=== PATIENT | female | born 1935 | race Caucasian/White ===

== ENCOUNTER 2021-12-17 17:47 | Emergency (ER) | payer OTHER, MEDICARE ==
[~2021-12-17] VITALS: Ht 170.2 cm; Wt 63.0 kg
[~2021-12-17 17:47] MED LIST: ASPIRIN325 MG PO; CINNAMON500 MG PO; CITALOPRAM HBR10 MG PO; CRANBERRY500 M3 PO; LEVOTHYROXINE150 MCG PO; MAGNESIUM500 MG PO; METOPROLOL SUCC50 MG PO; NASACORT10.8 ML NAS; OMEPRAZOLE20 MG PO; SUDOGEST60 MG PO; VITAMIN D2000 UNIT PO
== END 2021-12-17 19:58 | disposition home or self-care (01) ==
LOC: ED 17:47
DX: S61.012A Laceration without foreign body of left thumb without damage to nail, initial encounter (principal); Z23 Encounter for immunization; I10 Essential (primary) hypertension; E78.5 Hyperlipidemia, unspecified; Z87.891 Personal history of nicotine dependence; Z88.8 Allergy status to other drugs, medicaments and biological substances; Z91.048 Other nonmedicinal substance allergy status; Z88.7 Allergy status to serum and vaccine; Z79.899 Other long term (current) drug therapy; Z79.82 Long term (current) use of aspirin
CPT/HCPCS: 12001; 90471; 90715; 99282-25

== ENCOUNTER 2025-04-08 18:44 | Emergency (ER) | payer MEDICARE, OTHER ==
[~2025-04-08] VITALS: Ht 170.2 cm; Wt 66.1 kg
[2025-04-08 19:37] LABS: BASOPHILS 0.5 % (0.1-1.2); EOSINOPHILS 1.0 % (0.7-5.8); LYMPHOCYTES 33.3 % (19.3-51.7); MCH 29.3 PG (25.6-32.2); MCHC 35.4 g/dL (32.2-35.5); MCV 82.9 fL (79.4-94.8); MONOCYTES 17.0 % (4.7-12.5); NEUTROPHILS 48.0 % (34.0-71.1); RBC 3.68 M/uL (3.93-5.22)
[2025-04-08 19:47] LABS: ALT (SGPT) 33.0 U/L (14-59); AST (SGOT) 33.0 U/L (15-37); GLOMERULAR FILTRATION RATE,EST 58.0 mL/min (>60); PROTEIN, TOTAL 7.1 g/dL (6.4-8.2); TSH, 3RD GENERATION 1.274 uIU/mL (0.358-3.740); UREA NITROGEN 20.0 mg/dL (7-18)
[2025-04-08] MEDS ORDERED: SODIUM CHLORIDE 0.9% 1,000 ML IV PRN (20:15)
[2025-04-08 21:27] LABS: BLOOD/HGB, URINE NEGATIVE (Negative); KETONE, URINE NEGATIVE (Negative); LEUK ESTERASE, URINE TRACE (negative); NITRITE, URINE NEGATIVE (negative)
[2025-04-08 21:34] LABS: EPITHELIAL CELLS, URINE SQUAMOUS 1+ /lpf (0-1+)
[2025-04-08 21:35] LABS: BACTERIA, URINE RARE /hpf (negative); CASTS, URINE NONE SEEN \\lpf; CRYSTALS, URINE NONE SEEN (0-1+); REFLEX CULTURE, URINE Yes (No)
[2025-04-08 21:46] LABS: GLOMERULAR FILTRATION RATE,EST 76.0 mL/min (>60); UREA NITROGEN 19.0 mg/dL (7-18)
[2025-04-08 22:22] VITALS: BP 124/73
[2025-04-10 12:08] LABS: URINE OSMOLALITY 242 mOsm/kg (50-800)
[2025-04-10 12:14] LABS: OSMOLALITY 257 mOsm/kg (280-303)
== END 2025-04-08 22:23 | disposition home or self-care (01) ==
LOC: ED 18:44
PROVIDERS: Internal Medicine
DX: E87.1 Hypo-osmolality and hyponatremia (principal); I10 Essential (primary) hypertension; E78.5 Hyperlipidemia, unspecified; Z87.891 Personal history of nicotine dependence; Z88.8 Allergy status to other drugs, medicaments and biological substances; Z88.7 Allergy status to serum and vaccine; Z79.899 Other long term (current) drug therapy; Z91.018 Allergy to other foods
CPT/HCPCS: 36415; 80048; 80053; 81001; 83880; 83930; 83935; 84300; 84443; 85025; 87088; 99283; J7030